=== PATIENT | female | born 1940 | race Caucasian/White ===

== ENCOUNTER 2019-05-08 18:50 | Emergency (ER) | payer OTHER ==
[~2019-05-08] VITALS: Ht 162.6 cm; Wt 59.0 kg
[~2019-05-08 18:50] MED LIST: PANTOPRAZOLE SO40 MG
[2019-05-08] MEDS ORDERED: ZOLOFT25 MG (19:10)
[2019-05-08] MEDS ORDERED: SYNTHROID50 MCG (19:11)
== END 2019-05-08 20:36 | disposition home or self-care (01) ==
LOC: ER 18:50
DX: M25.852 Other specified joint disorders, left hip (principal)

== ENCOUNTER 2019-06-24 03:54 | Emergency (ER) | payer OTHER ==
[~2019-06-24] VITALS: Ht 152.4 cm; Wt 45.4 kg
[~2019-06-24 03:54] MED LIST changes: +SYNTHROID50 MCG; +ZOLOFT25 MG
[2019-06-24] MEDS ORDERED: CIPRO500 MG PO (10:50)
== END 2019-06-24 12:17 | disposition home or self-care (01) ==
LOC: ER 03:54
DX: G31.89 Other specified degenerative diseases of nervous system (principal); F02.80 Dementia in other diseases classified elsewhere, unspecified severity, without behavioral disturbance, psychotic disturbance, mood disturbance, and anxiety; R41.82 Altered mental status, unspecified; N39.0 Urinary tract infection, site not specified; B96.1 Klebsiella pneumoniae [K. pneumoniae] as the cause of diseases classified elsewhere

== ENCOUNTER 2020-08-23 21:01 | Emergency (ER) | payer OTHER ==
[~2020-08-23] VITALS: Ht 165.1 cm; Wt 56.7 kg
[~2020-08-23 21:01] MED LIST changes: +CIPRO500 MG PO
[2020-08-23] MEDS ORDERED: PANADOL (21:17)
[2020-08-23] MEDS ORDERED: MACROBID 100 M100 MG (21:18)
[2020-08-23] MEDS ORDERED: NITROFURANTOIN100 MG PO (23:43)
== END 2020-08-23 23:41 | disposition home or self-care (01) ==
LOC: ER 21:01
DX: R25.8 Other abnormal involuntary movements (principal); N39.0 Urinary tract infection, site not specified; F02.80 Dementia in other diseases classified elsewhere, unspecified severity, without behavioral disturbance, psychotic disturbance, mood disturbance, and anxiety; Z03.818 Encounter for observation for suspected exposure to other biological agents ruled out; R53.1 Weakness

== ENCOUNTER 2021-03-24 00:06 | Inpatient (IN) | payer OTHER ==
[~2021-03-24] VITALS: Ht 154.9 cm; Wt 43.1 kg
[~2021-03-24 00:06] MED LIST changes: +MACROBID 100 M100 MG; +NITROFURANTOIN100 MG PO; +PANADOL
--- NOTE | 2021-03-24 00:58 | NUR ---
PATIENT IS RECIEVED IN AMBULANCE UNIT HYPOACTIVE AND NOT ALERT OR ORIENTED X3 DUE TO HER DEMENTIA DIAGNOSIS. PARAMADICS CLAIM THAT PATIENT HAS BEEN HYPOACTIVE SINCE EARLY LAST NIGHT. PATIENT IS PLACED IN BED WITH RAILINGS UP AND ACCOMPANIED BY DAUGHTER.
--- NOTE | 2021-03-24 01:32 | NUR ---
IV LINE IS STARTED ON PATIENT'S RIGHT ARM AND BLOOD SAMPLES ARE COLLECTED IN ORDER TO COMPLETE LABS. SALINE LOCK IS PLACED ON IV LINE AND IV MED AND IV FLUIDS ARE ADMINISTERED. PATIENT STAY SIN OBSERVATION FOR ANY CHANGES TO HER CONDITION.
--- NOTE | 2021-03-24 07:00 | NUR ---
SE RECIBE PACIENTE FEMENINA ALERTA Y ORIENTADA EN SARANYA CON BARANDAS ELEVADAS. AREA DE VENOPUNCION EN ANTEBRAZO DERECHO BAJANDO UN 0.45/ 5% DW 1,000 BAJANDO A 175ML/HR PATENTE SHUN DE EDEMA Y ENROJECIMIENTO. TIENE ORDENADO DIETA SOFT MECHANICAHL. SE LE BRINNDA EN TODO MOMENTO PRIVACIDAD Y SEGURIDAD.
[2021-03-25] MEDS ORDERED: LEVOTHYROXINE175 MCG (11:23)
[2021-03-25] MEDS ORDERED: DONEPEZIL HCL5 MG (11:23)
[2021-03-25] MEDS ORDERED: DICLOFENAC SOD100 GM (11:24)
[2021-03-25] MEDS ORDERED: EAR DROPS15 ML (11:24)
[2021-03-25] MEDS ORDERED: RIVASTIGMINE1 EACH (11:24)
[2021-03-25] MEDS ORDERED: ACETAMINOPHEN80 M2 (11:24)
[2021-03-29] MEDS ORDERED: CEFDINIR300 MG PO (09:47)
== END 2021-03-29 10:16 | disposition home or self-care (01) | DRG 699 ==
LOC: ER 00:06 → MEDI 09:38
PROVIDERS: ADMIT Internal Medicine; ATTEND Internal Medicine
DX: T83.592A Infection and inflammatory reaction due to indwelling ureteral stent, initial encounter (principal); N39.0 Urinary tract infection, site not specified; E87.0 Hyperosmolality and hypernatremia; N20.2 Calculus of kidney with calculus of ureter; E46 Unspecified protein-calorie malnutrition; Y83.8 Other surgical procedures as the cause of abnormal reaction of the patient, or of later complication, without mention of misadventure at the time of the procedure; E86.0 Dehydration; E03.8 Other specified hypothyroidism; G30.8 Other Alzheimer's disease; F02.80 Dementia in other diseases classified elsewhere, unspecified severity, without behavioral disturbance, psychotic disturbance, mood disturbance, and anxiety; Z20.822 Contact with and (suspected) exposure to COVID-19; K59.00 Constipation, unspecified; Z53.8 Procedure and treatment not carried out for other reasons

== ENCOUNTER 2021-04-06 22:26 | Emergency (ER) | payer OTHER ==
[~2021-04-06] VITALS: Ht 165.1 cm; Wt 39.9 kg
[~2021-04-06 22:26] MED LIST changes: +ACETAMINOPHEN80 M2; +CEFDINIR300 MG PO; +DICLOFENAC SOD100 GM; +DONEPEZIL HCL5 MG; +EAR DROPS15 ML; +LEVOTHYROXINE175 MCG; +RIVASTIGMINE1 EACH
== END 2021-04-06 23:59 | disposition home or self-care (01) ==
LOC: ER 22:26
DX: S01.122A Laceration with foreign body of left eyelid and periocular area, initial encounter (principal); W18.09XA Striking against other object with subsequent fall, initial encounter; Y93.89 Activity, other specified; Y92.013 Bedroom of single-family (private) house as the place of occurrence of the external cause; Y99.8 Other external cause status

== ENCOUNTER 2021-06-02 18:46 | Emergency (ER) | payer OTHER ==
[~2021-06-02] VITALS: Ht 165.1 cm; Wt 43.1 kg
== END 2021-06-03 13:26 | disposition home or self-care (01) ==
LOC: ER 18:46
DX: R53.1 Weakness (principal); N39.0 Urinary tract infection, site not specified; E86.0 Dehydration; G30.9 Alzheimer's disease, unspecified; F02.80 Dementia in other diseases classified elsewhere, unspecified severity, without behavioral disturbance, psychotic disturbance, mood disturbance, and anxiety

== ENCOUNTER 2021-06-28 18:41 | Emergency (ER) | payer OTHER ==
[~2021-06-28] VITALS: Ht 165.1 cm; Wt 36.3 kg
[2021-06-28] MEDS ORDERED: SYNTHROID112 MCG (19:19)
== END 2021-06-29 12:40 | disposition home or self-care (01) ==
LOC: ER 18:41
DX: N39.0 Urinary tract infection, site not specified (principal); R10.33 Periumbilical pain; R50.9 Fever, unspecified; N20.0 Calculus of kidney; Z20.822 Contact with and (suspected) exposure to COVID-19; B96.29 Other Escherichia coli [E. coli] as the cause of diseases classified elsewhere

== ENCOUNTER 2021-06-30 22:27 | Inpatient (IN) | payer OTHER ==
[~2021-06-30] VITALS: Ht 165.1 cm; Wt 36.3 kg
[~2021-06-30 22:27] MED LIST changes: +SYNTHROID112 MCG
== END 2021-07-15 17:12 | disposition home or self-care (01) | DRG 689 ==
LOC: ER 22:27 → MEDJ 07-01 20:41 → MEDI 07-01 20:41
PROVIDERS: ADMIT Internal Medicine; ATTEND Internal Medicine
PROC: 8E0ZXY6 Isolation (ICD-10-PCS; principal; 2021-07-01)
PROC: BT4JZZZ Ultrasonography of Kidneys and Bladder (ICD-10-PCS; 2021-07-01)
PROC: BW24ZZZ Computerized Tomography (CT Scan) of Chest and Abdomen (ICD-10-PCS; 2021-07-01)
PROC: BW21ZZZ Computerized Tomography (CT Scan) of Abdomen and Pelvis (ICD-10-PCS; 2021-07-02)
PROC: 4A12X4Z Monitoring of Cardiac Electrical Activity, External Approach (ICD-10-PCS; 2021-07-02)
PROC: B24BYZZ Ultrasonography of Heart with Aorta using Other Contrast (ICD-10-PCS; 2021-07-06)
DX: N39.0 Urinary tract infection, site not specified (principal); U07.1 COVID-19; A41.9 Sepsis, unspecified organism; E87.0 Hyperosmolality and hypernatremia; E86.0 Dehydration; E87.6 Hypokalemia; N20.0 Calculus of kidney; N21.0 Calculus in bladder; E03.9 Hypothyroidism, unspecified; G30.9 Alzheimer's disease, unspecified; F02.80 Dementia in other diseases classified elsewhere, unspecified severity, without behavioral disturbance, psychotic disturbance, mood disturbance, and anxiety; Z96.0 Presence of urogenital implants; R53.81 Other malaise; Z87.442 Personal history of urinary calculi

== ENCOUNTER 2021-09-29 18:58 | Emergency (ER) | payer OTHER ==
[~2021-09-29] VITALS: Ht 157.5 cm; Wt 40.8 kg
== END 2021-09-29 23:38 | disposition home or self-care (01) ==
LOC: ER 18:58
DX: N39.0 Urinary tract infection, site not specified (principal)

== ENCOUNTER 2021-10-19 19:50 | Emergency (ER) | payer OTHER ==
[~2021-10-19] VITALS: Ht 152.4 cm; Wt 40.8 kg
[2021-10-20] MEDS ORDERED: PEPCID40 MG PO (05:40)
[2021-10-20] MEDS ORDERED: CEPHALEXIN500 MG PO (05:40)
== END 2021-10-20 05:51 ==
LOC: ER 19:50
DX: N39.0 Urinary tract infection, site not specified (principal); E86.0 Dehydration; Z20.822 Contact with and (suspected) exposure to COVID-19

== ENCOUNTER 2022-05-30 12:35 | Emergency (ER) | payer OTHER ==
[~2022-05-30] VITALS: Ht 149.9 cm; Wt 49.9 kg
[~2022-05-30 12:35] MED LIST changes: +CEPHALEXIN500 MG PO; +PEPCID40 MG PO; +[UNRECOGNIZED DRUG - CODE]
== END 2022-05-30 22:03 | disposition home or self-care (01) ==
LOC: ER 12:35
DX: R68.89 Other general symptoms and signs (principal); G30.9 Alzheimer's disease, unspecified; F02.80 Dementia in other diseases classified elsewhere, unspecified severity, without behavioral disturbance, psychotic disturbance, mood disturbance, and anxiety; Z20.822 Contact with and (suspected) exposure to COVID-19

== ENCOUNTER 2022-08-30 17:26 | Emergency (ER) | payer OTHER ==
[~2022-08-30] VITALS: Ht 152.4 cm; Wt 40.8 kg
== END 2022-08-30 21:33 | disposition home or self-care (01) ==
LOC: ER 17:26
DX: R31.9 Hematuria, unspecified (principal); N20.0 Calculus of kidney; N21.0 Calculus in bladder; B96.5 Pseudomonas (aeruginosa) (mallei) (pseudomallei) as the cause of diseases classified elsewhere; G30.9 Alzheimer's disease, unspecified; F02.80 Dementia in other diseases classified elsewhere, unspecified severity, without behavioral disturbance, psychotic disturbance, mood disturbance, and anxiety; Z74.01 Bed confinement status; N39.0 Urinary tract infection, site not specified; Z87.442 Personal history of urinary calculi

== ENCOUNTER 2022-09-16 11:32 | Emergency (ER) | payer OTHER ==
[~2022-09-16] VITALS: Ht 162.6 cm; Wt 40.8 kg
[2022-09-16] MEDS ORDERED: KETO10TA2 PO (17:09)
== END 2022-09-16 17:12 | disposition home or self-care (01) ==
LOC: ER 11:32
DX: R10.84 Generalized abdominal pain (principal); R05.9 Cough, unspecified; N39.0 Urinary tract infection, site not specified; R31.9 Hematuria, unspecified; E03.9 Hypothyroidism, unspecified

== ENCOUNTER 2022-09-26 22:09 | Emergency (ER) | payer OTHER ==
[~2022-09-26] VITALS: Ht 149.9 cm; Wt 41.7 kg
[~2022-09-26 22:09] MED LIST changes: +KETO10TA2 PO
== END 2022-09-27 03:53 | disposition home or self-care (01) ==
LOC: ER 22:09
DX: N39.0 Urinary tract infection, site not specified (principal); E03.9 Hypothyroidism, unspecified

== ENCOUNTER 2022-12-27 14:42 | Inpatient (IN) | payer OTHER ==
[~2022-12-27] VITALS: Ht 154.9 cm; Wt 40.8 kg
[2022-12-29] MEDS ORDERED: ROSUVASTATIN CA20 MG (09:17)
[2022-12-29] MEDS ORDERED: LEVOTHYROXINE137 MCG (09:19)
[2022-12-29] MEDS ORDERED: INTESTINEX680 M1 (09:19)
== END 2023-01-05 08:59 | disposition expired | DRG 208 ==
LOC: ER 14:42 → ICU-2 18:57 → ICU 12-28 06:08 → MEDJ 12-29 11:01
PROVIDERS: ADMIT Specialist; ATTEND Specialist
PROC: 5A1945Z Respiratory Ventilation, 24-96 Consecutive Hours (ICD-10-PCS; principal; 2022-12-27)
PROC: B246ZZZ Ultrasonography of Right and Left Heart (ICD-10-PCS; 2022-12-27)
PROC: 0BH18EZ Insertion of Endotracheal Airway into Trachea, Via Natural or Artificial Opening Endoscopic (ICD-10-PCS; 2022-12-27)
PROC: 3E0F7GC Introduction of Other Therapeutic Substance into Respiratory Tract, Via Natural or Artificial Opening (ICD-10-PCS; 2022-12-31)
PROC: 4A12X4Z Monitoring of Cardiac Electrical Activity, External Approach (ICD-10-PCS; 2023-01-03)
PROC: 02HV33Z Insertion of Infusion Device into Superior Vena Cava, Percutaneous Approach (ICD-10-PCS; 2023-01-04)
DX: J69.0 Pneumonitis due to inhalation of food and vomit (principal); J96.01 Acute respiratory failure with hypoxia; A41.59 Other Gram-negative sepsis; N39.0 Urinary tract infection, site not specified; Z16.12 Extended spectrum beta lactamase (ESBL) resistance; B96.1 Klebsiella pneumoniae [K. pneumoniae] as the cause of diseases classified elsewhere; R13.19 Other dysphagia; E03.8 Other specified hypothyroidism; G30.9 Alzheimer's disease, unspecified; F02.80 Dementia in other diseases classified elsewhere, unspecified severity, without behavioral disturbance, psychotic disturbance, mood disturbance, and anxiety; Z66 Do not resuscitate; Z74.01 Bed confinement status